=== PATIENT | male | born 1995 | race Caucasian/White ===

== ENCOUNTER 2019-02-21 22:45 | Emergency (ER) | payer OTHER ==
[~2019-02-21] VITALS: Ht 170.2 cm; Wt 54.9 kg
--- NOTE | 2019-02-21 23:11 | NUR ---
Patient wheeled in by w/c d/t abscess in [facility]. AAOX4. Speech is clear, speaks in complete sentences. No neuro deficits. Patient came in with c/o pain in [facility] d/t abscess. Respiratory even and unlabored, no cough no sob. No GI/ distress noted. Patient in bed at lowest position, side rails upx2, call light within reach.Fall precautions implemented per protocol.
[2019-02-21] MEDS ORDERED: LET TOPICAL SOLUTION 8 ML UDC ONE (23:25)
[2019-02-21] MEDS ORDERED: HYDROCODONE/APAP 5-325MG TABLET ONE (23:29)
[2019-02-21] MEDS ORDERED: SODIUM BICARBONATE 4.2 % (NEUT) 5 ML VIAL TP ONE (23:30)
[2019-02-21] MEDS ORDERED: LIDOCAINE HCL 2% 20 ML VIAL TP ONE (23:30)
[2019-02-21] MEDS ORDERED: HYDROCODONE/APAP 5-325MG TABLET PO ONE (23:30)
[2019-02-21] MEDS ORDERED: LET TOPICAL SOLUTION 8 ML UDC TOP ONE (23:30)
[2019-02-22] MEDS ORDERED: HYDROMORPHONE 1 MG/1 ML DISP.SYRIN ONE (00:03)
[2019-02-22] MEDS ORDERED: ONDANSETRON 4 MG/2 ML VIAL ONE (00:03)
[2019-02-22] MEDS ORDERED: HYDROMORPHONE 1 MG/1 ML DISP.SYRIN IM ONE (00:15)
[2019-02-22] MEDS ORDERED: ONDANSETRON 4 MG/2 ML VIAL IM ONE (00:15)
[2019-02-22] MEDS ORDERED: SULFAMETH/TRIMETH 800/160 MG TABLET PO ONE (00:30)
[2019-02-22] MEDS ORDERED: SULFAMETH/TRIMETH 800/160 MG TABLET ONE (00:48)
--- NOTE | 2019-02-22 00:55 | NUR ---
Patient discharged to home in stable conditon. Written and verbal after care instructions given. Patient verbalizes understanding of instructions. Patient wheeled out of dept in stable condition.
[2019-02-22 00:57] VITALS: BP 110/60
== END 2019-02-22 00:58 | disposition home or self-care (01) ==
LOC: ER 22:47
DX: L02.416 Cutaneous abscess of left lower limb (principal); F17.200 Nicotine dependence, unspecified, uncomplicated
CPT/HCPCS: 10060; 96372 ×2; 99284; J1170; J2405; J3490 ×2; A4663